=== PATIENT | female | born 1980 | race Caucasian/White ===

== ENCOUNTER → 2018-09-26 13:35 | Outpatient (CLI) | payer OTHER, SELFPAY ==
--- NOTE | 2018-09-26 13:40 | BI_ITS ---
MAMMOGRAPHY - BILATERAL SCREENING 3-D TOMOSYNTHESIS REASON FOR EXAM: Female, 38 years old. Bilateral Screening 3-D tomosynthesis PERTINENT HISTORY: No significant family history. TECHNIQUE: 2-D mammograms and 3-D Tomosynthesis of the breast (s) were performed. CAD was performed. COMPARISON: None. FINDINGS: The breast composition is almost entirely fat. Scattered benign calcifications are seen. No dense spiculated masses or suspicious microcalcifications are identified. No architectural distortion is identified. There is no skin thickening or retraction. Normal-appearing lymph nodes in both axillae. There has been no significant change since the prior study. BI/SCREEN MAMM (CAD) W/LORNE BILAT IMPRESSION: No mammographic signs of malignancy. Routine yearly mammograms recommended. ASSESSMENT CATEGORY: BIRADS Category 2: Benign. A letter regarding these results will be sent to the patient by the facility within 30 days. FOLLOW UP RECOMMENDATION: Yearly follow up mammogram recommended. (A) Approximately 10% of breast cancers are not detected by mammography. A normal mammogram should not delay biopsy of a clinically suspicious abnormality. Electronically Signed: Ronny Boyle MD at 17:05 EDT , Service support ,
== END ==
PROVIDERS: Family Provider Family Medicine; PCP Family Medicine; Referring Provider Obstetrics & Gynecology; Visit Provider Obstetrics & Gynecology
DX: Z12.31 Encounter for screening mammogram for malignant neoplasm of breast (principal)
CPT/HCPCS: 77063; 77067

== ENCOUNTER 2021-09-22 18:23 | Emergency (ER) | payer OTHER, SELFPAY ==
[2021-09-22 18:25] VITALS: BP 144/103; PULSE 110; RESP 18; TEMP 36.2; O2SAT 100; BMI 28.3
--- NOTE | 2021-09-22 18:54 | ED.RN ---
Pt. spoke with [facility] supervisor mirror fabrication on staff that stated she would not need a drug test. Advised pt. to follow up with general internist and physician leader.
[2021-09-22] MEDS: Diphth,Pertuss(Acell),Tet Vac 0.5 ML Vial IM (18:58)
--- NOTE | 2021-09-22 19:24 | EX.ED.UPPERE ---
HPI History of Present Illness Chief Complaint: Laceration Narrative Narrative: 41-year-old female presents with right fifth digit hand injury. She lacerated this while trying to move a shelf. Dog under the palmar aspect of the right pinky and caused a skin flap. Bleeding is controlled. Patient [id number]. Last tetanus unknown. Patient denies any pain at all. This did occur at work. PFSH PFSH Allergy/AdvReac Type Severity Reaction Status Date / Time No Known Allergies Allergy Verified 09/22/21 18:34 Social History Smoking Status: Never smoker ROS ROS ED Constitutional Constitutional ED: Denies chills or fever(s) Eyes Eyes: Denies change in vision ENT ENT ED: Denies rhinorrhea or sore throat Cardiovascular Cardiovascular: Denies chest pain or palpitations Respiratory/Chest Respiratory/Chest: Denies cough or dyspnea Gastrointestinal Gastrointestinal: Denies abdominal pain or constipation Genitourinary Genitourinary ED: Denies dysuria or hematuria Musculoskeletal Musculoskeletal: Denies back pain or myalgias Integumentary Reports other Details: Laceration right pinky EXAM Physical Exam Const Vital Signs: 09/22/21 18:25 Temperature 97.2 F L Temperature Source Temporal Pulse Rate 110 H Respiratory Rate 18 Blood Pressure 144/103 H Blood Pressure Mean 116 Pulse Ox 100 Oxygen Delivery Method Room Air Positive well nourished General Appearance ED: NAD HEENT Reports moist mucous membranes Eyes PERRL and EOMs intact bilaterally Resp normal respiratory effort Cardio regular rate and regular rhythm Extremity Extremity Narrative: Fifth into the right hand on the palmar surface has a laceration with a skin flap approximately 2 cm. There is no tendon tendon, exposure of vascular injury. No active bleeding. No pain. There is no bony injury or deformity. Neuro oriented x3 and CN's II-XII intact bilaterally Psych mental status grossly normal MDM MDM MDM Narrative Medical decision making narrative: 41-year-old female present with laceration to the right pinky finger. There is no active bleeding no pain. A digital nerve block was used to anesthetize the patient's finger with approximately 2 cc of lidocaine without epinephrine. Good anesthesia achieved. The wound is a flap-like injury with the proximal apex being superficial in the distal part being more deep. There is partially macerated tissue so it is technically hard to approximate the wound edges but I was able to pull the flap apex together and then approximate the side margins as well as it could be. Patient tolerated seizure well. 5 sutures were placed. Wound care and monitoring for signs of infection were discussed with the patient. She knows to come back in 10 to 14 days. She is not to keep her hands submerged. Worker's Comp. paperwork was filled out and she is given work restrictions for use of her right hand. She is supposed to keep the dressing in place at all times. Return precautions discussed. Impression: 1. 2 cm right and left Procedures Lacerations right hand laceration: Length: 1.5 in Depth: Skin Shape: Flap Prep: Sterile Conditions Laceration repair: Digital block Irrigated (ml): 250 Number of Sutures/Elayne: 5 Suture Information: Ethilon Discharge Plan Triage Chief Complaint: Laceration ED Provider: Reji Reyes Dx/Rx/DC Orders Instructions: ED Laceration, Hand: All Closures Primary Care Provider: Burt Hare Referrals: Burt Hare, DO [Primary Care Provider] - Disposition Disposition: Home, Self Care
== END 2021-09-22 19:36 | disposition home or self-care (01) ==
PROVIDERS: Emergency Provider Student in an Organized Health Care Education/Training Program; PCP Family Medicine; Visit Provider Student in an Organized Health Care Education/Training Program
DX: S61.216A Laceration without foreign body of right little finger without damage to nail, initial encounter (principal); W23.0XXA Caught, crushed, jammed, or pinched between moving objects, initial encounter; Y93.89 Activity, other specified; Y99.0 Civilian activity done for income or pay; Z23 Encounter for immunization
CPT/HCPCS: 12001; 90471; 90715; 99283

== ENCOUNTER → 2024-02-06 | Outpatient (CLI) | payer SELFPAY ==
[2024-02-06 12:06] LABS: Absolute Lymphocyte Count 2.14 X10^3/uL (0.83-4.51); Absolute Neutrophil Count 5.1 X10^3/uL (2.0-7.7); Basophil# 0.03 X10^3/uL; Basophil% 0.4 % (0-1); Eosinophil# 0.08 X10^3/uL; Hematocrit 45.3 % (37-47); Hemoglobin 14.4 g/dL (12.0-15.0); Lymphocyte # 2.14 X10^3/ul (0.83-4.51); Lymphocyte % 27.4 % (19-41); Mean Corp Hgb Conc 31.8 g/dL (32-36); Mean Corpuscular Hgb 29.3 pg (27.0-32.0); Mean Corpuscular Volume 92.1 fL (81-99); Mean Platelet Vol. 9.7 fl (6.2-12.0); Monocyte% 5.1 % (0-10); NRBC Flagged by Analyzer 0 % (0-5); Neutrophil # 5.13 X10^3/uL (2.7-7.7); Neutrophil % 65.6 % (47-70); Platelet Count 397 K/mm3 (150-450); RBC Distribution Width CV 12.4 % (11.6-14.6); RBC Distribution Width SD 42.5 fl (35.1-43.9); Red Blood Count 4.92 M/mm3 (4.2-5.4); White Blood Count 7.8 K/mm3 (4.4-11.0)
[2024-02-06 12:07] LABS: Color, Urine Yellow (Yellow); Glucose, Dipstick Normal (Normal); Ketone-Dipstick 5 mg/dl (Negative); Leukocyte Esterase-Dipstick Negative /ul (Negative); Nitrite-Dipstick Negative (Negative); Occult Blood-Urine Negative /ul (Negative); Protein-Dipstick Negative (Negative); Urine Bilirubin Dipstick Negative (Negative); Urine Clarity Clear (Clear); Urine Urobilinogen Normal (Normal)
[2024-02-06 12:42] LABS: Vitamin B12 545 pg/mL (211-911)
[2024-02-06 13:05] LABS: ALB/GLOB Ratio 1.1 RATIO (0.9-2.4); AST(SGOT) 16 U/L (15-37); Alanine Aminotransfer ALT/SGPT 23 U/L (13-56); Albumin, Serum 3.8 g/dL (3.2-5.0); Alkaline Phosphatase 56 U/L (45-117); Anion Gap 7 (5-15); BUN 15 mg/dL (7-18); BUN/Creat Ratio 19.1 RATIO (10-20); Calcium,Total 9.1 mg/dL (8.5-10.1); Chloride 107 mmol/L (98-107); Creatinine, Serum 0.79 mg/dL (0.55-1.02); EST Glomerular Filtration Rate 84 mL/min (>60); Est Glom Filt Rate - Afr Amer 102 mL/min (>60); Globulin 3.5 g/dL (2.2-4.2); Glucose 108 mg/dL (74-106); Potassium 4.3 mmol/L (3.5-5.1); Protein, Total 7.3 g/dL (6.4-8.2); Sodium Level 138 mmol/L (136-145)
[2024-02-06 13:35] LABS: Hemoglobin A1c 5.8 % (3.8-5.6)
== END | disposition home or self-care (01) ==
PROVIDERS: PCP Family Medicine; Referring Provider Family Medicine; Visit Provider Family Medicine
DX: R60.9 Edema, unspecified (principal); G62.9 Polyneuropathy, unspecified
CPT/HCPCS: 36415; 80053; 81002; 82607; 83036; 84443; 85025